=== PATIENT | female | born 1945 | race Caucasian/White ===

== ENCOUNTER → 2016-07-25 | Outpatient (CLI) | payer MEDICARE | LOC: CT 08:44 | DX: R22.1 Localized swelling, mass and lump, neck (principal); K22.9 Disease of esophagus, unspecified; R93.5 Abnormal findings on diagnostic imaging of other abdominal regions, including retroperitoneum | CPT/HCPCS: 36415; 70491; 82565; 84520; J7050; Q9962 ==

== ENCOUNTER → 2022-01-23 | Day surgery (SDC) | payer MEDICARE ==
[~2022-01-23] MED LIST: LIPITOR TAB 1010 MG PO; PREVACID 30 MG30 MG PO; VOLTAREN EC 7575 MG PO
== END | disposition home or self-care (01) ==
LOC: OR 06:34
PROVIDERS: Surgery
PROC: 0DB78ZX Excision of Stomach, Pylorus, Via Natural or Artificial Opening Endoscopic, Diagnostic (ICD-10-PCS; 2022-01-23)
PROC: 0DB38ZX Excision of Lower Esophagus, Via Natural or Artificial Opening Endoscopic, Diagnostic (ICD-10-PCS; principal; 2022-01-23 07:30)
DX: K22.70 Barrett's esophagus without dysplasia (principal); K31.7 Polyp of stomach and duodenum; K21.00 Gastro-esophageal reflux disease with esophagitis, without bleeding; K44.9 Diaphragmatic hernia without obstruction or gangrene; E78.5 Hyperlipidemia, unspecified; Z86.16 Personal history of COVID-19; M19.90 Unspecified osteoarthritis, unspecified site; Z79.899 Other long term (current) drug therapy
CPT/HCPCS: J2704